=== PATIENT | female | born 1970 | race African-American/Black ===

== ENCOUNTER → 2018-10-06 17:29 | Outpatient (CLI) | payer OTHER ==
[2013-06-05 14:19] VITALS: BMI 41.4
[~2018-10-06 17:29] MED LIST: BENICAR HCT 401 EAC1 PO; COZAAR50 MG PO; EZFE 200200 MG PO; VIBRAMYCIN 100100 MG PO; VITAMIN D250000 UNIT PO
[2018-10-20 04:03] VITALS: BMI 42.1
== END | disposition home or self-care (01) ==
LOC: D.MAMMO 16:15
DX: Z12.31 Encounter for screening mammogram for malignant neoplasm of breast (principal)

== ENCOUNTER 2018-10-19 08:30 | Day surgery (SDC) | payer OTHER ==
[2018-10-18 13:33] LABS: CALC OSMOLALITY 273 mosm/kg (275-300); CALCIUM 9.1 mg/dL (8.5-10.1); CARBON DIOXIDE 28.7 mmol/L (21.0-32.0); CHLORIDE - SERUM 101 mmol/L (98-107); CREATININE - SERUM 0.8 mg/dL (0.6-1.3); GLUCOSE 82 mg/dL (74-106); POTASSIUM - SERUM 3.8 mmol/L (3.5-5.1); SODIUM 138 mmol/L (136-145); UREA NITROGEN 9 mg/dL (7-18); eGFR NON AFRICAN AMERICAN 81 mL/min (90-120)
[2018-10-18 13:52] LABS: BASOPHILS 0.2 % (0-2); EOSINOPHILS 3.4 % (0-7); HEMATOCRIT 37.4 % (36.0-48.0); HEMOGLOBIN 12.3 g/dL (12-16); IMMATURE GRANULOCYTES 0.2 % (0-5); LYMPHOCYTES 34.9 % (15-50); MCHC 32.9 g/dL (31.0-37.0); MCV 88.2 fL (80.0-100.0); MONOCYTES 8.8 % (2-11); NEUTROPHILS 52.5 % (40-80); PLATELET COUNT 354 10x3/uL (130-400); RBC 4.24 10x6/uL (4.00-5.40); WBC 6.5 10x3/uL (4.8-10.8)
[~2018-10-19] VITALS: Ht 170.2 cm; Wt 124.7 kg
[2018-10-19 10:05] VITALS: BP 128/83; Ht 170.2 cm; Wt 124.7 kg
--- NOTE | 2018-10-19 16:30 | NUR ---
REC'D FROM RR. NAUSEA WITH SMALL AMOUNT OF EMESIS. FAMILY AT BEDSIDE. ICE CHIPS BROUGHT TO PT.
--- NOTE | 2018-10-19 17:12 | NUR ---
PHENERGAN 25MG IV ADMIMISTERED PER ORDERS FOR N/V. FAMILY AT BEDSIDE.
--- NOTE | 2018-10-19 17:30 | NUR ---
EYES CLOSED. RESP EASY. APPEARS TO BE SLEEPING. FAMILY AT BEDSIDE.
--- NOTE | 2018-10-19 18:00 | NUR ---
BHARGAV JERONIMO TOOK TO PATIENT. FAMILY AT BEDSIDE. DR BERTRAND CALLED AND RELATED SHE WOULD BE BY TO SEE PT IN ABOUT 15 MINUTES.
--- NOTE | 2018-10-19 18:17 | NUR ---
DROWSY HOWEVER RESPONDS TO VERBAL STIMULI. PERCOCET 10/325MG PO ADMINISTERED PER ORDERS.
--- NOTE | 2018-10-19 19:45 | NUR ---
1935 PT STATES NEEDS TO REST A LITTLE LONGER DC INSTS WERE GIVEN SIGNED BY FAMILY RX GIVEN VOICED UNDERSTANDING PT RETURNED TO BED TO REST.
== END 2018-10-19 19:55 | disposition home or self-care (01) ==
LOC: D.OPS 08:30
PROVIDERS: Obstetrics & Gynecology
DX: N83.11 Corpus luteum cyst of right ovary (principal); N83.202 Unspecified ovarian cyst, left side; I10 Essential (primary) hypertension; Z79.899 Other long term (current) drug therapy; Z01.812 Encounter for preprocedural laboratory examination

== ENCOUNTER 2018-10-20 03:57 | Emergency (ER) | payer OTHER ==
[~2018-10-20] VITALS: Ht 170.2 cm; Wt 121.8 kg
[2018-10-20 04:03] VITALS: Ht 170.2 cm; Wt 121.8 kg
[2018-10-20 04:59] VITALS: BP 138/73
== END 2018-10-20 05:00 | disposition home or self-care (01) ==
LOC: D.ER 03:57
DX: G89.18 Other acute postprocedural pain (principal)

== ENCOUNTER → 2019-03-13 12:42 | Outpatient (CLI) | payer OTHER ==
[2018-10-20 04:03] VITALS: BMI 42.1
[~2019-03-13 12:42] MED LIST changes: +CIPRO500 MG PO; +COZAAR25 MG PO; +FLAGYL500 MG PO; +FLORANEX / LACT1 TAB PO; +ZOFRAN4 MG PO
== END | disposition home or self-care (01) ==
LOC: D.CT 12:42
PROVIDERS: ATTEND Nurse Practitioner
DX: R19.7 Diarrhea, unspecified (principal); R10.9 Unspecified abdominal pain; D72.829 Elevated white blood cell count, unspecified

== ENCOUNTER 2019-03-15 00:53 | Inpatient (IN) | payer OTHER ==
[~2019-03-15 00:53] MED LIST changes: -CIPRO500 MG PO; -COZAAR25 MG PO; -FLAGYL500 MG PO; -FLORANEX / LACT1 TAB PO; -ZOFRAN4 MG PO
[2019-03-15] MEDS ORDERED: FLAGYL500 MG PO (01:13)
[2019-03-15] MEDS ORDERED: CIPRO500 MG PO (01:13)
[2019-03-15] MEDS ORDERED: COZAAR25 MG PO (01:14)
[2019-03-15 01:51] LABS: BASOPHILS 0.1 % (0-2); EOSINOPHILS 0.9 % (0-7); HEMATOCRIT 37.4 % (36.0-48.0); HEMOGLOBIN 12.6 g/dL (12-16); IMMATURE GRANULOCYTES 0.4 % (0-5); MCH 29.4 pg (26.0-34.0); MCHC 33.7 g/dL (31.0-37.0); MCV 87.2 fL (80.0-100.0); MEAN PLATELET VOLUME 8.5 fL (7.4-10.4); MONOCYTES 8.8 % (2-11); NEUTROPHILS 82.8 % (40-80); PLATELET COUNT 337 10x3/uL (130-400); RBC 4.29 10x6/uL (4.00-5.40); RDW 12.4 % (11.5-14.5); WBC 15.1 10x3/uL (4.8-10.8)
[2019-03-15 02:10] LABS: ALBUMIN 3.2 g/dL (3.4-5.0); ALKALINE PHOSPHATASE 114 U/L (46-116); ALT (SGPT) 17 U/L (10-68); BILIRUBIN - TOTAL 0.68 mg/dL (0.2-1.3); CALC OSMOLALITY 277 mosm/kg (275-300); CARBON DIOXIDE 28.2 mmol/L (21.0-32.0); CHLORIDE - SERUM 101 mmol/L (98-107); CREATININE - SERUM 0.9 mg/dL (0.6-1.3); GLUCOSE 149 mg/dL (74-106); POTASSIUM - SERUM 3.4 mmol/L (3.5-5.1); PROTEIN - SERUM 7.9 g/dL (6.4-8.2); SODIUM 138 mmol/L (136-145); UREA NITROGEN 9 mg/dL (7-18); eGFR NON AFRICAN AMERICAN 70 mL/min (90-120)
[2019-03-15 02:14] LABS: AMYLASE - SERUM 55 U/L (25-115); LIPASE 54 U/L (73-393)
[2019-03-15 02:16] LABS: TROPONIN-I < 0.017 ng/mL (0.000-0.060)
[2019-03-15 02:55] LABS: APPEARANCE SL CLDY (CLEAR); BILIRUBIN NEGATIVE (NEGATIVE); COLOR DK YELLOW (YELLOW); GLUCOSE NEGATIVE (NEGATIVE); KETONE MODERATE mg/dL (NEGATIVE); NITRITE NEGATIVE (NEGATIVE); PROTEIN 2+ mg/dL (NEGATIVE); SPECIFIC GRAVITY 1.025 (1.005-1.020); UROBILINOGEN NORMAL (NORMAL)
[2019-03-15 02:57] LABS: BACTERIA MODERATE /hpf (NONE SEEN); EPITHELIAL CELLS 0-5 /hpf (0-5); MUCUS <1+ /lpf (NONE SEEN); RED CELLS - URINE 0-5 /hpf (0-5)
[2019-03-15 04:00] VITALS: BP 142/70
--- NOTE | 2019-03-15 04:35 | NUR ---
PATIENT TO THE FLOOR VIA WHEEL CHAIR. ASSISTWED PATIENT TO THE BATHROOM AND PUTTING ON NONSKID SOCKS. PATIENT HAS A RIGH AC PIV RUNNING NS AND ABX, NO S/SX OF INFILTRATION OR INFECTION. NO OTHER NEEDS AT THIS TIME. CALL LIGHT WITHIN REACH AND BED IN LOWEST POSITION.
[2019-03-15 04:58] VITALS: BP 142/70; BMI 38.4
--- NOTE | 2019-03-15 07:31 | NUR ---
ROUNDING DONE WITH PATIENT RESTING WITH EYES CLOSED, SPOUSE IN CHAIR WITH EYES CLOSED. BOTH AROUSE EASILY. ICE WATER GIVEN. DENIES NEEDS AT THIS TIME. ON ROOM AIR. RIGHT AC PIV SEEN WITH NS INFUSING AT 50 CC/HR.
--- NOTE | 2019-03-15 07:48 | NUR ---
PT TO REFUSES SCD'S SHE IS UP AND DOWN TO RESTROOM.
--- NOTE | 2019-03-15 08:38 | NUR ---
[place] HAT PLACED IN [facility] AND INSTRUCTED TO NOTIFY STAFF WHEN STOOL OBTAINED. STATES TO UNDERSTANDING.
[2019-03-15 09:47] VITALS: BP 133/78
--- NOTE | 2019-03-15 12:46 | NUR ---
PER PATIENT REQUEST, SHE SEE'S KEVYN FARRIS [facility] AND WANTS TO CONTINUE HER SERVICES. I CALLED DR PAIZ AND HE SAID TO TRANSFER HER SERVICES TO THEM.
--- NOTE | 2019-03-15 13:30 | NUR ---
PATIENT INFORMATION FOR CLOSTRIDIUM DIFFICLE GIVEN TO HER AND SPOUSE. PLACED IN ENTERIC ISOLATION.
--- NOTE | 2019-03-15 14:48 | NUR ---
2ND BAG OF POTASSIUM INFUSING SLOWLY OVER TWO HOURS FIRST ONE. PATIENT WANTS TO TAKE A SHOWER POST INFUSION.
[2019-03-15 17:47] VITALS: BP 120/76
[2019-03-15 17:56] VITALS: BP 133/84
--- NOTE | 2019-03-15 19:17 | NUR ---
EVENING ROUNDS MADE. PT LAYING IN BED RESTING. DENIES PAIN AT THIS TIME. DENIES FURTHER NEEDS. ENTERIC PRECAUTIONS TAKEN. BED LOWERED AND LOCKED. CL IN REACH. WILL CTM.
[2019-03-15 20:00] VITALS: BP 144/72
--- NOTE | 2019-03-15 22:51 | NUR ---
PT C/O NAUSEA. NO VOMITTING NOTED. ZOFRAN GIVEN TO IV IN R AC, PATENT, NO REDNESS OR EDEMA NOTED. DRSG C/D/I. DENIES FURTHER CONCERNS AT THIS TIME. BED LOWERED AND LOCKED. CL IN REACH. WILL CTM.
[2019-03-16 00:30] VITALS: BP 142/81
--- NOTE | 2019-03-16 04:21 | NUR ---
I have reviewed this patient and I concur with the Shift Assessment completed by the Licensed Practical Nurse today this shift.
[2019-03-16 04:30] VITALS: BP 144/86
[2019-03-16 05:13] LABS: BASOPHILS 0.2 % (0-2); HEMATOCRIT 35.3 % (36.0-48.0); HEMOGLOBIN 11.6 g/dL (12-16); IMMATURE GRANULOCYTES 0.3 % (0-5); MCH 28.9 pg (26.0-34.0); MCHC 32.9 g/dL (31.0-37.0); MCV 87.8 fL (80.0-100.0); MEAN PLATELET VOLUME 8.7 fL (7.4-10.4); MONOCYTES 10.3 % (2-11); NEUTROPHILS 68.2 % (40-80); PLATELET COUNT 324 10x3/uL (130-400); RBC 4.02 10x6/uL (4.00-5.40); RDW 12.5 % (11.5-14.5)
[2019-03-16 05:27] LABS: WBC 11.1 10x3/uL (4.8-10.8)
[2019-03-16 05:43] LABS: ALBUMIN 2.6 g/dL (3.4-5.0); ANION GAP 12.4 mmol/L (8-16); BILIRUBIN - TOTAL 0.48 mg/dL (0.2-1.3); CARBON DIOXIDE 26.9 mmol/L (21.0-32.0); MAGNESIUM - SERUM 1.8 mg/dL (1.8-2.4); POTASSIUM - SERUM 3.3 mmol/L (3.5-5.1); PROTEIN - SERUM 6.7 g/dL (6.4-8.2)
[2019-03-16 07:48] VITALS: BP 134/79
[2019-03-16 08:16] LABS: PH - STOOL 6.5 (7.0-7.5)
[2019-03-16 14:39] VITALS: BMI 38.3
--- NOTE | 2019-03-16 19:18 | NUR ---
EVENING ROUNDS MADE. PT SITTING UP IN BED. DENIES PAIN AT THIS TIME. ENTERIC PRECAUTIONS TAKEN. DENIES HAVING A BM TODAY. NO FURTHER CONCERNS AT THIS TIME. BED LOWERED AND LOCKED. CL IN REACH. WILL CTM.
[2019-03-16 20:00] VITALS: BP 147/77
--- NOTE | 2019-03-16 22:32 | NUR ---
VITALS STABLE. PT TOOK MEDS WITHOUT DIFFICULTY. ENTERIC PRECAUTIONS TAKEN. BED LOWERED AND LOCKED. CL IN REACH. WILL CTM.
[2019-03-17 00:15] VITALS: BP 129/74
[2019-03-17 04:30] VITALS: BP 119/56
--- NOTE | 2019-03-17 04:45 | NUR ---
I have reviewed this patient and I concur with the Shift Assessment completed by the Licensed Practical Nurse today this shift.
--- NOTE | 2019-03-17 04:46 | NUR ---
I have reviewed this patient and I concur with the Shift Assessment completed by the Licensed Practical Nurse today this shift.
[2019-03-17 06:17] LABS: BASOPHILS 0.3 % (0-2); EOSINOPHILS 8.7 % (0-7); HEMATOCRIT 33.4 % (36.0-48.0); HEMOGLOBIN 11.1 g/dL (12-16); IMMATURE GRANULOCYTES 0.4 % (0-5); LYMPHOCYTES 22.8 % (15-50); MCHC 33.2 g/dL (31.0-37.0); MCV 87.2 fL (80.0-100.0); MEAN PLATELET VOLUME 8.7 fL (7.4-10.4); MONOCYTES 8.7 % (2-11); NEUTROPHILS 59.1 % (40-80); PLATELET COUNT 310 10x3/uL (130-400); RBC 3.83 10x6/uL (4.00-5.40); RDW 12.5 % (11.5-14.5); WBC 9.4 10x3/uL (4.8-10.8)
[2019-03-17 06:41] LABS: ANION GAP 11.9 mmol/L (8-16); CALCIUM 8.5 mg/dL (8.5-10.1); CARBON DIOXIDE 25.4 mmol/L (21.0-32.0); CREATININE - SERUM 0.9 mg/dL (0.6-1.3); POTASSIUM - SERUM 3.3 mmol/L (3.5-5.1)
--- NOTE | 2019-03-17 07:19 | NUR ---
REPORT RECEIVED. WILL CONTINUE WITH POC. PT CURRENTLY LYING SEMI FOWLERS. CALL LIGHT W/I REACH. PT IS AAO AND UP AD LONG. FAMILY AT BEDSIDE. RR EVEN AND UNLABORED ON RA. NS INFUSING @50ML/HR VIA R.AC PIV. PT REQUESTING ZOFRAN BEFORE BREAKFAST. PT DENIES ANY FURTHER NEEDS AT THIS TIME. NO S/S OF DISTRESS NOTED. WILL CTM.
[2019-03-17] MEDS ORDERED: FLORANEX / LACT1 TAB PO (07:55)
[2019-03-17] MEDS ORDERED: FLAGYL500 MG PO (07:57)
[2019-03-17] MEDS ORDERED: ZOFRAN4 MG PO (07:59)
--- NOTE | 2019-03-17 08:30 | NUR ---
AM MEDICATIONS ADMINISTERED. PT DENIES ANY NEEDS. NO S/S OF N/V PRESENT. WILL CTM.
--- NOTE | 2019-03-17 10:43 | NUR ---
PT DISCHARGED HOME VIA WHEELCHAIR WITH FAMILY. PIV REMOVED WITH CATHETER TIP FULLY INTACT. PT SIGNED PROPER DISCHARGE INSTRUCTION AND REMOVED ALL VALUABLES FROM THE ROOM.
--- NOTE | 2019-03-17 13:56 | MORECARE ---
CASE MANAGEMENT DISCHARGE SUMMARY PATIENT: BLANCA JOINER UNIT: [id number] ADM DATE: 03/15/19 AGE: 48 : 68 SEX: F ROOM/BED: D.4056 AUTHOR: PORFIRIO,DOC PHYSICIAN: REFERRING PHYSICIAN: LUBNA VARGAS MD DATE OF SERVICE: 03/17/19 Discharge Plan Patient Name: BLANCA JOINER Facility: [facility]:[place] : 1970 Planned Disposition: Home Anticipated Discharge Date: 03/17/19 Discharge Date: 03/17/2019 Expected LOS: 2 Initial Reviewer: [email or web address] Initial Review Date: 03/17/2019 Generated: 03/17/19 2:56 pm Comments DCP- Discharge Planning Updated by [email or web address]: Pato Chamorro on 03/17/19 12:[address] Patient Name: BLANCA JOINER Admission Status: ER Accout number: [id number] Admission Date: 03-15-2019 : 1970 Admission Diagnosis: Attending: LUBNA VARGAS Current LOS: 2 Anticipated DC Date: 03-17-2019 Planned Disposition: Home Primary Insurance: [employer] Discharge Planning Comments: CM MET WITH PT AND SPOUSE IN ROOM TO DISCUSS DISCHARGE PLANNING AND NEEDS. BLANCA JOINER provided verbal consent to discuss current and ongoing needs with/in the presence of: SPOUSE, [place]. PT REPORTS LIVING AT HOME INDEPENDENTLY WITH HER SPOUSE. PT HAS NO MEDICAL EQUIPMENT AND NO OUTSIDE SERVICES ASSISTING IN THE HOME. CM DISCUSSED AVAILABILITY OF HOME HEALTH, REHAB SERVICES AND MEDICAL EQUIPMENT. PT DENIES DISCHARGE NEEDS, REPORTS HER SPOUSE WILL PICK HER UP FOR DISCHARGE HOME. FIRE APPARATUS SPRINKLER INSPECTOR NURSE NOTIFIED. [employer] Report Developer: Pato Chamorro DCPIA - Discharge Planning Initial Assessment Updated by [email or web address]: Pato Chamorro on 03/17/19 1:52 pm * Is the patient Alert and Oriented? Yes * How many steps to enter\exit or inside your home? NONE * PCP [facility]ELIA FARRIS, [facility] * Pharmacy [facility] * Preadmission Environment Home with Family * ADLs Independent * Equipment None * Other Equipment NO MEDICAL EQUIPMENT PROVIDER PREFERENCE * List name and contact numbers for known caregivers / representatives who currently or will assist patient after discharge: MAJOR JOINER, SPOUSE, * Verbal permission to speak to the caregivers and representatives has been obtained from the patient. Yes * Community resources currently utilized None * Please name any agencies selected above. NONE * Additional services required to return to the preadmission environment? No * Can the patient safely return to the preadmission environment? Yes * Has this patient been hospitalized within the prior 30 days at any hospital? No Patient Name: BLANCA JOINER Page [id number] at 1356 All edits/amendments must be made on the electronic document DICTATION DATE: 03/17/19 1356 BOX PULLER: NOMAN 03/17/19 1356 RPT#: [id number] IN DATE:03/17/19 STATUS: DIS IN [facility] [address] [place] [address] END OF REPORT
[2019-03-20 20:06] LABS: OVA + PARASITE EXAM Final report (())
== END 2019-03-17 10:56 | disposition home or self-care (01) | DRG 373 ==
LOC: D.ER 00:53 → D.M2 02:59
PROVIDERS: Family Medicine; ADMIT Family Medicine; ATTEND Family Medicine
DX: A04.72 Enterocolitis due to Clostridium difficile, not specified as recurrent (principal); I10 Essential (primary) hypertension

== ENCOUNTER 2019-10-09 09:30 | Outpatient (CLI) | payer OTHER ==
[~2019-10-09 09:30] MED LIST changes: +CIPRO500 MG PO; +COZAAR25 MG PO; +FLAGYL500 MG PO; +FLORANEX / LACT1 TAB PO; +ZOFRAN4 MG PO
== END 2019-10-09 10:00 | disposition home or self-care (01) ==
LOC: D.MAMMO 09:30
PROVIDERS: ATTEND Nurse Practitioner
DX: Z12.31 Encounter for screening mammogram for malignant neoplasm of breast (principal)